=== PATIENT | female | born 1990 | race African-American/Black ===

== ENCOUNTER 2016-06-28 09:09 | Emergency (ER) | payer SELFPAY ==
[2016-06-28] MEDS ORDERED: CEFTRIAXONE 500 MG VIAL ONE (11:09)
[2016-06-28] MEDS ORDERED: AZITHROMYCIN 250 MG TAB ONE (11:09)
[2016-06-28] MEDS ORDERED: LIDOCAINE 1% MDV 20 ML ONE (11:09)
== END 2016-06-28 11:27 | disposition home or self-care (01) ==
LOC: ER 09:09
DX: N89.8 Other specified noninflammatory disorders of vagina (principal)
CPT/HCPCS: 81001; 81025; 87491; 87591; 87800; 96372